=== PATIENT | female | born 1945 | race Caucasian/White ===

== ENCOUNTER 2020-03-29 20:49 | Emergency (ER) | payer MEDICARE, OTHER ==
[~2020-03-29] VITALS: Ht 162.6 cm; Wt 70.0 kg
[2020-03-29] MEDS ORDERED: DIAZEPAM 5 MG/ML, 10ML VIAL IV ONE (21:00)
--- NOTE | 2020-03-29 21:15 | NUR ---
mri form faxed at this time
--- NOTE | 2020-03-29 22:14 | NUR ---
MID LEVEL PRACTITIONER: CALLED IMAGING ABOUT MRI; VISCOSITY TESTER HERE NOW FOR IMAGING.
[2020-03-29 23:47] VITALS: BP 130/68
[2020-03-30] MEDS ORDERED: KETOROLAC 30 MG/1 ML IVPush ONE (01:00)
[2020-03-30] MEDS ORDERED: ONDANSETRON 2MG/ML, 2ML IVPush ONE (01:00)
[2020-03-30] MEDS ORDERED: HYDROmorphone 2 MG/ML, 1ML IVPush PRN (01:00)
[2020-03-30] MEDS ORDERED: SODIUM CHLORIDE 0.9% 1,000ML IVBOLUS ONE (01:00)
[2020-03-30] MEDS ORDERED: SODIUM CHLORIDE FLUSH 10ML SYR IVF ONE (01:00)
== END 2020-03-30 01:17 | disposition home or self-care (01) ==
LOC: ED 21:26
DX: M51.36 Other intervertebral disc degeneration, lumbar region (principal); N39.41 Urge incontinence; I10 Essential (primary) hypertension; W18.30XA Fall on same level, unspecified, initial encounter; Y93.89 Activity, other specified; Y92.89 Other specified places as the place of occurrence of the external cause; Y99.8 Other external cause status
CPT/HCPCS: 72146; 72148; 99285; J3360